=== PATIENT | female | born 1950 | race Caucasian/White ===

== ENCOUNTER → 2023-12-28 | Outpatient (REF) | payer MEDICARE, SELFPAY | LOC: DHSLP | PROVIDERS: ATTENDING PHYSICIAN Internal Medicine Critical Care Medicine; FAMILY PHYSICIAN Internal Medicine | DX: G47.33 Obstructive sleep apnea (adult) (pediatric) (principal); R06.83 Snoring | CPT/HCPCS: 95800 ==

== ENCOUNTER 2024-10-22 01:09 | Inpatient (IN) | payer MEDICARE, SELFPAY ==
[2024-10-21 17:08] VITALS: BP 144/74
[2024-10-21 17:43] LABS: % Basophils 0.6 % (0-2); % Immature Granulocytes 0.6 % (0-0.5); % Lymphocytes 15.1 % (20.5-51.1); % Monocytes 5.8 % (1.7-9.3); % Neutrophils 73.9 % (42.2-75.2); Absolute Basophils 0.1 10^3/uL (0-0.2); Absolute Eosinophils 0.5 10^3/uL (0-0.7); Absolute Immature Granulocytes 0.1 10^3/uL (0-0.05); Absolute Lymphocytes 1.9 10^3/uL (1.2-3.4); Absolute Monocytes 0.7 10^3/uL (0.1-0.6); Absolute Neutrophils 9.4 10^3/uL (1.4-6.5); Hematocrit 41.2 % (37.0-47.0); Hemoglobin 13.3 g/dL (12.0-16.0); Mean Corp Hgb Conc. 32.3 g/dL (33.0-37.0); Mean Corpuscular Hgb 26.5 pg (27.0-31.0); Mean Corpuscular Volume 82.2 fL (81.0-99.0); Mean Platelet Volume 8.6 fL (7.4-10.4); Nucleated Red Blood Cells % 0 %; Platelet Count 363 10^3/uL (130-400); Red Blood Cell Count 5.01 10^6/uL (4.20-5.40); Red Cell Dist. Width 14.8 % (11.5-14.5); White Blood Cell Count 12.7 10^3/uL (4.8-10.8)
[2024-10-21 17:46] LABS: ALT (SGPT) 11 U/L (0-35); AST (SGOT) 14 U/L (14-36); Albumin 4.2 g/dl (3.5-5.0); Alkaline Phosphatase 92 U/L (38-126); Blood Urea Nitrogen 21 mg/dl (7-17); Calcium 9.7 mg/dl (8.4-10.2); Carbon Dioxide 29 mmol/L (22-30); Chloride 98 mmol/L (98-107); Glucose 217 mg/dl (70-99); Potassium 3.6 mmol/L (3.5-5.1); Sodium 139 mmol/L (135-145); Total Bilirubin 0.5 mg/dl (0.2-1.3); Total Protein 6.5 g/dl (6.3-8.2); eGFR > 60.00
[2024-10-21 21:07] VITALS: BP 101/79
[2024-10-21 21:26] VITALS: BMI 28.2
--- NOTE | 2024-10-21 21:41 | ED.GENMED ---
History of Present Illness
General
Chief Complaint: Skin Problem
Source: patient and spouse
Exam Limitations: none
Time Seen by Provider: 10/21/24 21:01
History of Present Illness
History of Present Illness:
74-year-old female diabetic, immunodeficiency, prior hip and pelvic fracture 14 years ago after a fall treated [facility] subsequently had infection treated with antibiotics for extended period of time recovered well had a fall on
[employer] [place]'s Day to the right side of her hip same area, did not keep eating a eye on the spot, had some redness, today had some drainage no fevers, no nausea or vomiting, no pain with range of motion of her hip
Past History
Past History
ED Past Medical History: Asthma, HTN, Hypercholesterolemia, IDDM and Other (Common variable Immunodeficiency disorder, MRSA infection which has led to her taking Minocycline for years, causing bluish discoloration of her skin)
ED Past Surgical History: Cholecystectomy, Gynecological, Orthopedic and Tonsilectomy
Social History
Tobacco: Non-smoker
Alcohol: None
Drug: None
Personal:
Living: with family
Employment: Retired
Family History
Family History: Other
Phy Exam
Physical Exam
Physical Exam:
Physical Exam
General: Nontoxic elderly
Neck: No jaundice
Heart: s1/s2 regular rate and rhythm, no murmur. equal radial pulses.
Lungs: no acute respiratory distress. clear bilaterally
Abdomen: Nontender
Neuro: alert and oriented. No pain with range of motion of the hips bilateral
Skin: no rash
Psychiatric: well kept. interactive and cooperative
Extremities: Redness with puslike drainage and erythema under skin fold in the right lateral hip
Course
Orders/Labs/Results
Orders:
Orders
10/21/24 17:16
CR Hip - RT w/wo Pel 2-3 Vw* Urgent
Comment:
Reason For Exam: infection
Include a pelvis x-ray?: No
10/21/24 17:26
C-Reactive Protein Urgent
Comment: ADD ON
CMP [Comprehensive Metabolic Panel] Urgent
Complete Blood Count/With Diff Urgent
Erythrocyte Sed Rate Urgent
Comment: ADD ON
10/21/24 21:22
Add On- LAB Urgent
Tests Added?: crp/esr
10/21/24 21:23
CT Lower Ext W/iv Cont Rt Urgent
Comment:
Reason For Exam: infection right hip
10/21/24 21:39
Blood Culture Q30M
ROBERTO CARLOS Source: Blood/Venous
Specimen Description:
Wound Culture [Wound/Abscess/Other Culture] Urgent
ROBERTO CARLOS Source: Skin Surface
Specimen Description:
Date Specimen was Collected: 10/21/24
Time Specimen was Collected: 21:24
10/21/24 22:15
Blood Culture Q30M
ROBERTO CARLOS Source: Blood/Venous
Specimen Description:
Abnormal Lab Results
10/21/24
17:26
WBC 12.7 H 10^3/uL
(4.8-10.8)
MCH 26.5 L pg
(27.0-31.0)
MCHC 32.3 L g/dL
(33.0-37.0)
RDW 14.8 H %
(11.5-14.5)
Abs Immat Gran (auto) 0.1 H 10^3/uL
(0-0.05)
Absolute Neuts (auto) 9.4 H 10^3/uL
(1.4-6.5)
Absolute Monos (auto) 0.7 H 10^3/uL
(0.1-0.6)
Immature Gran % 0.6 H %
(0-0.5)
Lymphocytes % 15.1 L %
(20.5-51.1)
BUN 21 H mg/dl
(7-17)
Glucose 217 H mg/dl
(70-99)
C-Reactive Protein 18.50 H mg/L
(0.0-10.00)
10/21/24 17:26
10/21/24 17:26
Vital Signs
Initial and Last Documented VS:
Initial Vital Signs
Temp Pulse Resp BP Pulse Ox
98.0 F 93 18 144/74 100
10/21/24 17:08 10/21/24 17:08 10/21/24 17:08 10/21/24 17:08 10/21/24 17:08
Last Documented Vital Signs
Temp Pulse Resp BP Pulse Ox
98.0 F 86 16 127/79 99
10/21/24 17:08 10/21/24 22:00 10/21/24 22:00 10/21/24 22:00 10/21/24 22:00
MDM/Problems Addressed
Differential Diagnosis Includes:
Cellulitis, infected hardware, abscess,
MDM/Problems Addressed:
Drainage or redness from the right hip upper thigh
Chronic conditions affecting care: DM and Immunosuppressed
Acute Exacerbation and/or Progression of Chronic Illness: DM and Immunosuppressed
*Radiology
Radiology exam reviewed: preliminary read by ED provider and radiology read reviewed
*Pulse Oximetry
Patient hypoxic: no
*Critical Care Note
Total Time (30-74mins, 75-104mins- exclusive of procedures): Not Applicable
Update Note
Update Note:
Will add inflammatory markers, check wound culture, CT scan for any collection low threshold to admit
Update CT report noted
ED Attending Note
-
Portions of this chart may have been created with voice recognition software.� Occasional wrong word or��sound alike� substitutions may have occurred due to the inherent limitations of voice recognition software.
Discharge Plan
Departure
Patient Disposition: Admit
Date of Disposition: 10/21/24
Time of Disposition: 23:00
Admit to: Med/Surg
Presentation/result/management discussed w/ accepting MD/: Hospitalist
Patient with high blood pressure during this ER visit?: No
Condition: Fair
Discharge Problem:
Complicated cellulitis, Diabetes, Common variable immunodeficiency
Prescriptions:
No Action
venlafaxine [Effexor XR] 150 MG capsule,extended release 24hr
450 mg PO DAILY
aspirin 81 MG tablet,delayed release (DR/EC)
81 mg PO HS
lorazepam 0.5 MG tablet
0.5 mg PO DAILYPRN PRN (Reason: anxiety)
diphenhydramine HCl [Banophen] 25 MG capsule
25 mg PO HS
esomeprazole magnesium [Nexium] 40 MG capsule,delayed release(DR/EC)
40 mg PO DAILY
colestipol [Colestid] 1 GM tablet
2 g PO DAILY
insulin glargine U-300 conc [Toujeo SoloStar U-300 Insulin] 300 UNIT/ML insulin pen
4 unit SC DAILY
atorvastatin 20 mg Tablet
20 mg PO HS
valsartan 320 mg Tablet
320 mg PO DAILY
hydrochlorothiazide 12.5 mg Capsule
12.5 mg PO DAILY
colestipol 1 gram Tablet
1 g PO HS
mometasone 0.1 % Cream
1 applic TOPICAL DAILY
calcium carbonate-vitamin D3 600 mg-10 mcg (400 unit) Tablet
1 tab PO HS
cholecalciferol (vitamin D3) 1,250 mcg (50,000 unit) Capsule
1,250 mcg PO FR
dulaglutide 1.5 mg/0.5 mL Pen Injector
1.5 mg SC FR
Referrals:
Nevaeh Berkowitz DO [Family Provider] -
Interventions
Interventions:
*Risk Screen - Suicide Last Done: 10/21/24 17:08
*General Assessment Last Done: 10/21/24 17:08
*Neglect/Abuse Screening Last Done: 10/21/24 21:27
*ED COVID-19 Vaccine History Last Done: 10/21/24 17:08
ED-Skin Assessment Last Done: 10/21/24 21:50
Discharge Date and Time
Print Language: SWAZI
[2024-10-21 21:51] LABS: Erythrocyte Sed Rate 10 mm/hour (0-20)
[2024-10-21 22:00] VITALS: BP 127/79
[2024-10-22] VITALS: BP 116/74
--- NOTE | 2024-10-22 01:08 | HPS.HSE ---
Family Physician
-
Family Physician: Nevaeh Berkowitz
Chief Complaint
-
R hip drainage
History of Present Illness
Patient is a 74y F with PMH significant for HTN, DM-II, CVID and prior / chronic R hip infection who presents to ED complaining of drainage / discharge from the R anterior hip area. Patient states that she had a fall on 10/03 and landed on her R
hip. She was having increased pain since that time - controlled with OTC medications. This AM she woke and noted that the bed was 'soaked'. She noted drainage of clear / yellow fluid from the R anterior hip region. Patient identified an area of
redness with mucoid secretions and clear liquid drainage in skin folds of her lower abdomen / area of the R hip / groin.
Patient denies any fevers / chills, N/V, etc.
Patient notes that she suffered initial fall / injury with fracture of the R ilium in 2010. She had ORIF done at [facility].
Shortly thereafter she was diagnosed with MRSA wound infection. She underwent I&D, washout, implantation of antibiotic beads, wound vac placement, etc.
Patient was admitted multiple times in the next few months at [facility] / [facility] for issues relating to her infection.
She developed LUISITO / renal failure from vancomycin.
She was eventually started on minocycline by ID at [facility] and remained on this until about 2 years ago.
She was then followed by Dr. Castro at [facility]. Patient had developed chronic skin pigmentation changes from minocycline and this medication was stopped at that time.
She has not had any issues until the fall on 10/03.
Medical History
Past Medical History
Past Medical History: Reports Other
Additional Past Medical History:
Chronic R Hip MRSA Infection
Common Variable Immune Deficiency
Hypertension
DM-II
Right Foot Drop
Anxiety / Depression
Chronic Diarrhea
Past Surgical History: Reports Other
Additional Past Surgical History:
Right Ilium ORIF (2010)
Right Hip I&D / Washout (2010)
Lumbar Discectomy
T&A
Cholecystectomy
Social History
Tobacco: Non-smoker
Alcohol: Occasional
Drug: None
Family History
Family History: Not pertinent
Allergies / Home Medications
Allergies reflects when Allergies were last updated in [email or web address].
Home Medications with original date entered in [email or web address]
Allergy/Medication List:
Allergies
Allergy/AdvReac Type Severity Reaction Status Date / Time
vancomycin Allergy renal Verified 10/21/24 17:14
failure
Home Medications
aspirin 81 mg tablet,delayed release 81 mg PO HS 09/01/16
colestipol 1 gram tablet (Colestid) 2 g PO DAILY 09/01/16
diphenhydramine HCl 25 mg capsule (Banophen) 25 mg PO HS 09/01/16
esomeprazole magnesium 40 mg capsule,delayed release (Nexium) 40 mg PO DAILY 09/01/16
insulin glargine U-300 conc 300 unit/mL (1.5 mL) subcutaneous pen (Toujeo SoloStar U-300 Insulin) 4 unit SC DAILY 09/01/16
lorazepam 0.5 mg tablet 0.5 mg PO DAILYPRN PRN anxiety 09/01/16
venlafaxine 150 mg capsule,extended release 24 hr (Effexor XR) 450 mg PO DAILY 09/01/16
atorvastatin 20 mg tablet 20 mg PO HS 10/21/24
calcium 600 mg (as carbonate)-vitamin D3 10 mcg (400 unit) tablet 1 tab PO HS 10/21/24
cholecalciferol (vitamin D3) 1,250 mcg (50,000 unit) capsule 1,250 mcg PO FR 10/21/24
colestipol 1 gram tablet 1 g PO HS 10/21/24
dulaglutide 1.5 mg/0.5 mL subcutaneous pen injector 1.5 mg SC FR 10/21/24
hydrochlorothiazide 12.5 mg capsule 12.5 mg PO DAILY 10/21/24
mometasone 0.1 % topical cream 1 applic topical DAILY dry skin 10/21/24
valsartan 320 mg tablet 320 mg PO DAILY 10/21/24
Review of Systems
-
History Source: Patient
A 12 point ROS was completed and negative except as noted: Yes
Constitutional: Denies Fever or Chills
Respiratory: Denies Cough or Trouble Breathing
Cardiac: Denies Chest Pain or Palpitations
Abdomen/GI: Reports Diarrhea (chronic / controlled on colestipol); Denies Abdominal Pain, Nausea or Vomiting
: Denies Dysuria or Frequency
Musculoskeletal: Reports Joint Pain (R hip.)
Skin: Reports Other (Drainage from R abdominal / groin skin fold with associated redness / swelling.)
Neurological: Denies Dizzy or Headache
Physical Exam
Vital Signs
Vital Signs
Temp Pulse Resp BP Pulse Ox
98.0 F 84 14 116/74 99
10/21/24 17:08 10/22/24 00:00 10/22/24 00:00 10/22/24 00:00 10/22/24 00:00
Physical Exam
General: Other (74y F in no acute distress.)
HEENT: Moist mucous membranes and PERRLA
Respiratory: Clear; No Wheezes, Rales or Rhonchi
Cardiac: S1/S2 and Regular Rhythm; No Murmur
GI: Soft, Non Tender, Non Distended, Normal Bowel Sounds and Other (Excess skin / abdominal skin folds from significant weight loss / prior obesity.)
Musculoskeletal: No Clubbing, No Cyanosis and No Edema
Skin: Other (Linear area of erythema and induration in skin fold superior to the R inguinal area. Mucoid secretions and clear / serous drainage. Mild induration / tenderness.)
Neuro: AO x 3
Laboratory Results
-
10/21/24 17:26
10/21/24 17:26
Laboratory Results
Total Bilirubin 0.5 mg/dl (0.2-1.3) 10/21/24 17:26
AST 14 U/L (14-36) 10/21/24 17:26
ALT 11 U/L (0-35) 10/21/24 17:26
Alkaline Phosphatase 92 U/L (38-126) 10/21/24 17:26
Impression/Plan
-
A/P: Patient is a 74y F with PMH significant for CVID and prior R hip infection who presents to ED complaining of drainage from the R hip area s/p recent fall.
Right Hip / Groin Cellulitis / Drainage
CVID
- Admit for further evaluation and treatment.
- Location and history are suspicious for possible recurrent / persistent R hip infection (MRSA previously).
- CT done in the ED shows skin changes but no evident hardware abnormality, fluid collection, etc.
- Cultures obtained in the ED (blood and local drainage / discharge).
- Follow-up culture data and begin appropriate abx. Currently afebrile, non-toxic, etc.
- ID evaluation for additional recommendations.
- Wound Care eval for local care.
Benign Hypertension
- Stable. Continue home medication with holding parameters.
DM-II
- Stable. Continue basal : bolus insulin regimen.
- Cover with SSI as needed.
- Update A1C.
Anxiety / Depression
- Stable. Continue Effexor and lorazepam PRN.
DVT Prophylaxis: Subcut heparin
Code Status: Full
--- NOTE | 2024-10-22 03:07 | PTCARENOTE ---
Pt received as ED hold on stretcher. AAOx3, pleasant. Admission and assessment completed (refer to worklist). Pt overall skin w/blueish hue, states 2/2 chronic abx minocycline. Plan of care discussed. Assisted x1 to BR, oral hygiene completed.
R hip w/small open area over old healed incision, 4x4 tucked [address]. Pt reports falling on 's day, verbalizes understanding of calling for assist before ambulating. Call britton w/in reach. Safe environment maintained.
[2024-10-22 04:55] VITALS: BMI 27.0
[2024-10-22 05:58] LABS: Hematocrit 39.3 % (37.0-47.0); Hemoglobin 12.8 g/dL (12.0-16.0); Mean Corp Hgb Conc. 32.6 g/dL (33.0-37.0); Mean Corpuscular Hgb 26.4 pg (27.0-31.0); Mean Corpuscular Volume 81.2 fL (81.0-99.0); Mean Platelet Volume 8.7 fL (7.4-10.4); Platelet Count 288 10^3/uL (130-400); Red Blood Cell Count 4.84 10^6/uL (4.20-5.40); Red Cell Dist. Width 14.6 % (11.5-14.5); White Blood Cell Count 9.5 10^3/uL (4.8-10.8)
[2024-10-22 06:08] LABS: Blood Urea Nitrogen 18 mg/dl (7-17); Carbon Dioxide 29 mmol/L (22-30); Chloride 101 mmol/L (98-107); Estimated Creatinine Clearance 60 ml/min; Glucose 106 mg/dl (70-99); Potassium 3.9 mmol/L (3.5-5.1); Sodium 138 mmol/L (135-145); eGFR > 60.00
--- NOTE | 2024-10-22 07:48 | CON.ID ---
Consultation
-
Date/Time Consultation Requested: 10/22/2024 0120
Date/Time Consultation Performed: 10/22/2024 0707
Requesting Provider: Dr. Quiñones
Performing Provider: Dr. Spencer
Reason for Consultation: Suspected right hip infection
Chief Complaint / Past History
History of Present Illness
Francisca Larson is a 74-year-old female being evaluated at the request of Dr. Kapoor in regards to suspected right hip infection. History is obtained from chart review, along with patient interview.
The patient reports a remote history of a fall in 2010 at which time she fractured her right hip and pelvis. She reports that a contributing factor to that may have been prior use of steroids, reportedly for a history of chronic pneumonias.
Ultimately, she was admitted to the [facility] where she underwent ORIF, with plates and screws being placed. She reports a very extensive and protracted hospitalization from mid November 2010 through February 2011. Her hospitalization
was complicated by MRSA infection. She notes that she had been on vancomycin at some point in time and developed renal insufficiency. Ultimately she was transition to minocycline which she took for approximately 10 years but stopped 2 to 3 years
ago secondary to skin discoloration attributed to the minocycline.
She recalls that her hip had started hurting approximately 1 year ago, but she states that she had seen her orthopedic physician at that time and x-rays indicated only arthritis causing the discomfort. She notes the pain improved up to several
months ago when there again was some ongoing pain.
More recently, she reports sustaining a fall on ' of this year, at which time she reports falling onto her right hip. There were no other issues since, but yesterday she recalls waking up and her bed was 'soaked' from drainage
that seemed to be coming from a prior incisional line.
She denies any fevers or chills. She notes that the area where the drainage is occurring is tender to touch.
Past History
Additional Past Medical History:
Asthma
HTN
Dyslipidemia
DM
Common variable immunodeficiency
Hx chronic MRSA infection
Additional Past Surgical History:
Cholecystectomy
[employer] surgery
Right hip ORIF
Allergy History:
vancomycin Allergy (Verified 10/21/24 17:14)
renal failure
Medications Reviewed: Yes
Current Antibiotics:
None
Social History
Tobacco: Non-Smoker
Alcohol: None
Drug: None
Employment: Retired
Family History
Family History: Not Pertinent
Review of Systems
Vital Signs
Temp Pulse Resp BP Pulse Ox
98.0 F 84 14 116/74 99
10/21/24 17:08 10/22/24 00:00 10/22/24 00:00 10/22/24 00:00 10/22/24 00:00
Physical Exam
Physical Exam
Constitutional: No Acute Distress, Comfortable, Chronically Ill and Non-toxic
Head: Normocephalic
Eyes: Pupils Equal, Pupils Round, No Conjunctival Hemorrhage and Sclera Anicteric
Oral: No Thrush and No Ulcers
Cardiovascular: S1/S2; Negative S3/S4
Pulmonary: Clear; Negative Wheezes, Rales or Rhonchi
Gastrointestinal: Soft and Non Tender
Extremities: Negative Edema, Cyanosis or Erythema
Musculoskeletal: Other (Right hip area with punctate wound with tenderness and some serous drainage.)
Skin: Warm and Dry; Negative Rash or Jaundice
Neurological: Awake and Alert
Psychological: Calm
.
Lab / Diagnostic Study Results
10/22/24 05:16
10/22/24 05:14
Abs Immat Gran (auto) 0.1 10^3/uL (0-0.05) H 10/21/24 17:26
Absolute Neuts (auto) 9.4 10^3/uL (1.4-6.5) H 10/21/24 17:26
Absolute Lymphs (auto) 1.9 10^3/uL (1.2-3.4) 10/21/24 17:26
Absolute Monos (auto) 0.7 10^3/uL (0.1-0.6) H 10/21/24 17:26
Absolute Basos (auto) 0.1 10^3/uL (0-0.2) 10/21/24 17:26
Immature Gran % 0.6 % (0-0.5) H 10/21/24 17:
Neutrophils % 73.9 % (42.2-75.2) 10/21/24 17:
Lymphocytes % 15.1 % (20.5-51.1) L 10/21/24 17:
Monocytes % 5.8 % (1.7-9.3) 10/21/24 17:
Eosinophils % 4.0 % (0-6) 10/21/24 17:
Basophils % 0.6 % (0-2) 10/21/24 17:
ESR 10 mm/hour (0-20) 10/21/24 17:26
C-Reactive Protein 18.50 mg/L (0.0-10.00) H 10/21/24 17:
Microbiology Results
Micro:
10/22/24 05:16 MRSA Screen - Pending
Nose
10/21/24 22:15 Blood Culture - Pending
Blood/Venous
10/21/24 21:39 Wound Culture - Pending
Skin Surface Gram Stain - Pending
10/21/24 21:39 Blood Culture - Pending
Blood/Venous
Imaging:
10/21/24 CT right lower extremity: ORIF changes of the right iliac bone without overt hardware complications. There is overlying soft tissue thickening and edema/inflammation along the right upper hip lateral soft tissues, suggesting phlegmon. No
discrete fluid collections. Inflammatory tract extends to the overlying lateral skin surface with a few scattered foci of subcutaneous gas. Please see full dictation for additional detail. Film personally viewed.
10/21/2024 x-ray right hip: Moderate degenerative changes of the right hip without evidence for acute fracture or dislocation. ORIF changes of the right iliac bone without overt complication. Scattered vascular calcifications. Mild to moderate
degenerative changes of the pubis symphysis, left hip, bilateral sacroiliac joints and partially visualized lower lumbar spine.
Assessment / Plan
Right hip pain.
Right hip draining sinus
Suspected exacerbation of right hip chronic hardware infection
- Hx MRSA
Leukocytosis
Mildly elevated CRP
Hx common variable immunodeficiency
Asthma
HTN
Dyslipidemia
Diabetes mellitus
Recommendations:
Would hold on antibiotic administration for the present while cultures are pending.
Monitor white count and temperature curve.
Local care to the right hip area.
Await A1c
May consider Orthopedics evaluation. Ultimately, patient likely will require follow-up with her original Orthopedic surgeon.
[2024-10-22] MEDS: EFFEXOR XR 450 MG PO (07:50)
[2024-10-22] MEDS: DIOVAN 320 MG PO (07:50)
[2024-10-22] MEDS: HEPARIN SC ×2 (07:58→08:01)
[2024-10-22 08:15] VITALS: BP 144/104
[2024-10-22 08:40] LABS: Glucose - Point of Care 111 mg/dl (70-99)
[2024-10-22] MEDS: NOVOLOG FLEXPEN-LOW RESISTANCE SC ×2 (08:40→12:45)
[2024-10-22 09:00] LABS: Glycohemoglobin (HgbA1c) 7.3 % (4.0-5.6)
[2024-10-22 12:33] LABS: Glucose - Point of Care 145 mg/dl (70-99)
--- NOTE | 2024-10-22 13:26 | W.PN.HOSP.TC ---
Today's Communication/Plan
-
see plan
Assessment / Plan
Assessment / Plan
74y F with PMH significant for CVID and prior R hip infection who presents to ED complaining of drainage from the R hip area s/p recent fall.
Gen: NAD, AAOx3.
Eyes: EOMI, PERRLA, no scleral icterus.
Neck: supple.
CV: RRR, +S1/S2, no m/r/g.
Resp: CTAB, no rales, wheezes, or rhonchi.
Abd: +BS, soft, NT, ND
Skin: hyperpigmented skin
MSK: R hip exam deferred (ortho c/s pending)
Neuro: CN 2-12 intact, non-focal.
Psych: Normal mood and affect.
R hip and Pelvis Xray: Moderate degenerative changes of the right hip without evidence for acute fracture or dislocation. ORIF changes of the right iliac bone without overt complication. Scattered vascular calcifications. Mild to moderate
degenerative changes of the pubis symphysis, left hip, bilateral sacroiliac joints and partially visualized lower lumbar spine.
CT RLE: ORIF changes of the right iliac bone without overt hardware complications. There is overlying soft tissue thickening and edema/inflammation along the right upper hip lateral soft tissues, suggesting phlegmon. No discrete fluid collections.
Inflammatory tract extends to the overlying lateral skin surface with a few scattered foci of subcutaneous gas. Moderate degenerative changes of the right hip. No overt CT evidence for ostial myelitis. Diverticulosis coli. Evaluation of additional
soft tissue structures such as tendons and ligaments is limited by CT.
Right Hip/Groin Cellulitis with Drainage:
-Patient with underlying common variable immunodeficiency syndrome
-Location and history are suspicious for possible recurrent / persistent R hip infection (MRSA previously).
-CT RLE above
-follow BCxs/WCx
-Afebrile, no leukocytosis
-ID following and not recommending abx at this time. Discussed with Dr. Kimzey over [employer].
-c/s ortho
-wound care
Other problems:
Essential Hypertension: cont Diovan
DM2: a1c 7.3%, cont Lantus/SSI/accuchecks
Anxiety/Depression: Cont Effexor/lorazepam PRN
FULL/heparin
Anticipated Discharge: 24 - 48 hours
Subjective/Interval History
-
Date of Service: October 22, 2024
c/s diarrhea.
Objective Data
-
Labs:
Laboratory Results
10/22/24 10/22/24
05:14 05:16
WBC 9.5
Hgb 12.8
Hct 39.3
Plt Count 288 D
Sodium 138
Potassium 3.9
Chloride 101
Carbon Dioxide 29
BUN 18 H
Creatinine 0.7
Glucose 106 H
Calcium 10.0
Vital Signs:
Vital Signs
Temp Pulse Resp BP Pulse Ox
98.0 F 79 16 144/104 100
10/22/24 08:15 10/22/24 08:15 10/22/24 08:15 10/22/24 08:15 10/22/24 08:29
I&O
10/21/24 10/22/24 10/23/24
06:59 06:59 06:59
Intake Total 240 / 240
Balance 240 / 240
--- NOTE | 2024-10-22 15:53 | PTCARENOTE ---
room assigned upstairs. No Delay report sent
--- NOTE | 2024-10-22 16:08 | PTCARENOTE ---
pt refused cholestyramine susp. reports she can only tolerate capsules. contacted pharmacy, capsules are not in stock, spouse to bring in pt's own- pharm will verify.
[2024-10-22 17:11] LABS: Glucose - Point of Care 150 mg/dl (70-99)
[2024-10-22 17:12] VITALS: BP 162/93
[2024-10-22] MEDS: NOVOLOG FLEXPEN-LOW RESISTANCE 1 UNITS SC (18:27)
[2024-10-22] MEDS: NON-FORMULARY ITEM 1 GRAMS PO (21:02)
[2024-10-22] MEDS: HEPARIN 5000 UNITS SC (21:03)
[2024-10-22] MEDS: ASPIR LOW (ENTERIC COATED) 81 MG PO (21:03)
[2024-10-22] MEDS: OSCAL 500 + D 500 MG PO (21:03)
[2024-10-22] MEDS: LIPITOR 20 MG PO (21:03)
[2024-10-22 22:09] LABS: Glucose - Point of Care 170 mg/dl (70-99)
[2024-10-22 23:00] VITALS: BP 144/76
[2024-10-23 06:00] VITALS: BMI 28.0
--- NOTE | 2024-10-23 07:40 | W.PN.HOSP.TC ---
Today's Communication/Plan
-
d/c
Assessment / Plan
Assessment / Plan
74y F with PMH significant for CVID and prior R hip infection who presents to ED complaining of drainage from the R hip area s/p recent fall.
Gen: Remains NAD, AAOx3.
Eyes: EOMI, PERRLA, no scleral icterus.
Neck: supple.
CV: Remains RRR, +S1/S2, no m/r/g.
Resp: Remains CTAB, no rales, wheezes, or rhonchi.
Abd: +BS, soft, NT, ND
Skin: hyperpigmented skin
Neuro: CN 2-12 intact, non-focal.
Psych: Normal mood and affect.
10/21/24 21:39 Skin Surface Wound Culture - Preliminary
Staphylococcus aureus
10/21/24 21:39 Skin Surface Gram Stain - Preliminary
10/22/24 05:16 Nose MRSA Screen - Final
No Methicillin Resistant Staphylococcus aureus isolated.
10/21/24 22:15 Blood/Venous Blood Culture - Preliminary
No Growth in 24 hours- Final report to follow
10/21/24 21:39 Blood/Venous Blood Culture - Preliminary
No Growth in 24 hours- Final report to follow
R hip and Pelvis Xray: Moderate degenerative changes of the right hip without evidence for acute fracture or dislocation. ORIF changes of the right iliac bone without overt complication. Scattered vascular calcifications. Mild to moderate
degenerative changes of the pubis symphysis, left hip, bilateral sacroiliac joints and partially visualized lower lumbar spine.
CT RLE: ORIF changes of the right iliac bone without overt hardware complications. There is overlying soft tissue thickening and edema/inflammation along the right upper hip lateral soft tissues, suggesting phlegmon. No discrete fluid collections.
Inflammatory tract extends to the overlying lateral skin surface with a few scattered foci of subcutaneous gas. Moderate degenerative changes of the right hip. No overt CT evidence for ostial myelitis. Diverticulosis coli. Evaluation of additional
soft tissue structures such as tendons and ligaments is limited by CT.
Right Hip/Groin Cellulitis with Drainage:
-Patient with underlying common variable immunodeficiency syndrome
-Location and history are suspicious for possible recurrent / persistent R hip infection (MRSA previously).
-CT RLE above
-follow BCxs/WCx
-Afebrile, no leukocytosis
-ID following and continues to not recommend abx at this time (discussed with Dr. Spencer).
-appreciate ortho. No evidence of septic joint at this time.
-wound care
Other problems:
Essential Hypertension: cont Diovan
DM2: a1c 7.3%, cont Lantus/SSI/accuchecks
Anxiety/Depression: Cont Effexor/lorazepam PRN
FULL/heparin
Patient's daughter updated at bedside.
Total time spent on d/c = 34 min. This included today's physical exam, progress note, review of laboratory and diagnostic data, preparation of discharge documents and prescriptions, and discussions about the pt's hospital course and discharge plan
with the patient and other medical staff physician involved in the patient's care.
Anticipated Discharge: Today
Subjective/Interval History
-
Date of Service: October 23, 2024
No new complaints.
Objective Data
-
Vital Signs:
Vital Signs
Temp Pulse Resp BP Pulse Ox
98.7 F 87 16 144/76 99
10/22/24 23:00 10/22/24 23:00 10/22/24 23:00 10/22/24 23:00 10/22/24 23:00
I&O
10/22/24 10/23/24 10/24/24
06:59 06:59 06:59
Intake Total 240 / 240 720 / 720
Balance 240 / 240 720 / 720
[2024-10-23 07:44] LABS: Glucose - Point of Care 141 mg/dl (70-99)
[2024-10-23] MEDS: NOVOLOG FLEXPEN-LOW RESISTANCE SC (07:48)
[2024-10-23 07:50] VITALS: BP 149/81
[2024-10-23] MEDS: NON-FORMULARY ITEM 2 GRAMS PO (08:35)
[2024-10-23] MEDS: DIOVAN 320 MG PO (08:35)
[2024-10-23] MEDS: EFFEXOR XR 450 MG PO (08:35)
[2024-10-23] MEDS: HEPARIN 5000 UNITS SC (08:37)
[2024-10-23] MEDS: NON-FORMULARY ITEM 4 UNIT SC (08:37)
--- NOTE | 2024-10-23 08:51 | CON.ORTHO ---
Consultation
-
Date/Time Consultation Requested: 10/22/2024
Date/Time Consultation Performed: 10/23/2024
Requesting Provider: Sean Mariscal
Performing Provider: Adelso Gleason
Reason for Consultation: concern for right hip septic joint
Consultation - Orthopedics
History
Orthopedic Surgery Note
CC: R flank drainage
HPI: 74-year-old female with a history of CVID presents for 1 to 2 days of drainage from a prior surgical site about the anterior ileum. The patient reports a history of fracture of the ileum in 2010 which was treated surgically at a [facility] with
Sandro Palumbo. Her recovery was complicated by persistent wound drainage which was treated with multiple surgical I&D including antibiotic beads. She reports that eventually the wound closed and she was managed on chronic suppression with
minocycline. She discontinued the minocycline about 2 or 3 years ago due to skin pigmentation changes. She follows with infectious disease at [facility] who directed this. She saw Dr. Palumbo about a year ago for right hip pain where she was noted to
have right hip osteoarthritis without signs of hardware changes. She denies fevers or chills. She reports that the wound has been closed up until recently. She denies right groin pain or anterior thigh pain with hip motion such as putting on
socks and shoes or getting out of the car.
PMH/PSH: CVID, HTN, HL, DM
Medications: reviewed
Family History: Family history was reviewed. Noncontributory
Social history: Nonsmoker, no illicit drugs
Exam
General appearance: Pleasant. No acute distress.
Head: Normocephalic/atraumatic
Nose: No lesions or discharge.
Skin: No obvious rashes or open wounds
Lungs: No audible wheezing, no cough or sputum production
Musculoskeletal:
RLE:
- Surgical scar over anterior ilium overlying ASIS with 2mm opening at the lateral edge with purulent draiange
- No surrounding erthema
- No pain with active hip motion
- Weakness with dorsiflexion of foot - patient reports chronic from her fracture surgery
Imaging:
Xrays: Pelvis x-ray shows plate and screws transfixing the ileum without signs of acute hardware complication. Hardware appears extra-articular. There is signs of right hip osteoarthritis.
CT scan of the pelvis was reviewed by me showing screws transfixing the ilium. There is signs of right hip osteoarthritis. The radiology report describes an inflammatory track in the lateral skin surface with thickening and edema. No signs of a
large hip joint effusion.
Labs 10/21/2024:
ESR:10 (WNL)
CRP: 18.5 mg/L (H)
AP:
74-year-old female with a history of CVID with findings consistent with likely recurrence of chronic surgical site infection about the right ilium from prior fracture surgery. She is not having groin pain or thigh pain or other symptoms consistent
with right hip septic arthritis. If her symptoms change or there is concern by the medical teams for right hip septic arthritis, IR aspiration would more definitively assess for this. I discussed this with the patient. We discussed treatment options
such as resuming chronic suppressive antibiotics as well as general indications for surgical intervention. If she remains clinically stable, then she may follow up with Dr. Sandro Palumbo at [facility] to discuss further treatment
options.
Adelso Gleason MD
> 75 minutes was spent reviewing the clinical information, evaluating the patient, and formulating clinical plan.
Allergies / Home Medications
Allergy/AdvReac Type Severity Reaction Status Date / Time
vancomycin Allergy renal Verified 10/21/24 17:14
failure
�Medication �Instructions �Recorded
aspirin 81 mg tablet,delayed 81 mg PO HS 09/01/16
release
colestipol 1 gram tablet (Colestid) 2 g PO DAILY 09/01/16
diphenhydramine HCl 25 mg capsule 25 mg PO HS 09/01/16
(Banophen)
esomeprazole magnesium 40 mg 40 mg PO DAILY 09/01/16
capsule,delayed release (Nexium)
insulin glargine U-300 conc 300 4 unit SC DAILY 09/01/16
unit/mL (1.5 mL) subcutaneous pen
(Toujeo SoloStar U-300 Insulin)
lorazepam 0.5 mg tablet 0.5 mg PO DAILYPRN PRN anxiety 09/01/16
venlafaxine 150 mg 450 mg PO DAILY 09/01/16
capsule,extended release 24 hr
(Effexor XR)
atorvastatin 20 mg tablet 20 mg PO HS 10/21/24
calcium 600 mg (as 1 tab PO HS 10/21/24
carbonate)-vitamin D3 10 mcg (400
unit) tablet
cholecalciferol (vitamin D3) 1,250 1,250 mcg PO FR 10/21/24
mcg (50,000 unit) capsule
colestipol 1 gram tablet 1 g PO HS 10/21/24
dulaglutide 1.5 mg/0.5 mL 1.5 mg SC FR 10/21/24
subcutaneous pen injector
hydrochlorothiazide 12.5 mg capsule 12.5 mg PO DAILY 10/21/24
mometasone 0.1 % topical cream 1 applic topical DAILY dry skin 10/21/24
valsartan 320 mg tablet 320 mg PO DAILY 10/21/24
Vital Signs / Lab Results
Temp Pulse Resp BP Pulse Ox
97.9 F 84 15 149/81 99
10/23/24 07:50 10/23/24 07:50 10/23/24 07:50 10/23/24 07:50 10/23/24 07:50
10/22/24 05:16
10/22/24 05:14
[2024-10-23 11:33] LABS: Glucose - Point of Care 162 mg/dl (70-99)
[2024-10-23] MEDS: NOVOLOG FLEXPEN-LOW RESISTANCE 1 UNITS SC (12:28)
--- NOTE | 2024-10-23 12:34 | CM ---
Addendum entered by Stacey Tran 10/23/24 14:08:
Patient for discharge today, provided script for outpatient therapy. IMM verbally reviewed, agreeable to discharge, provided with copy, form placed in chart.
Original Note:
CM reviewed chart, patient seen bedside with daughter, initial assessment completed. Patient resides with her spouse, daughter, son in law, and grandchildren in a multiple story home, patient resides on first floor, one small step to enter. Patient
has a cane, walker, rollator, wheelchair, sit to stand lift at home. Patient reports she has a nurse come out once a month through her PCP, denies SNF. CM discussed therapy recommendations of outpatient therapy, patient agreeable, will need script
upon discharge. Patient confirms PCP Nevaeh Berkowitz, pharmacy [facility], confirms prescription coverage. CM will continue to follow for all discharge planning needs.
Plan; home with outpatient PT, will require script upon d/c
--- NOTE | 2024-10-23 13:16 | W.PN.ID1 ---
Date of Service
Date of Service: October 23, 2024
Today's Communication
Continue off antibiotics.
Assessment / Plan
Right hip pain.
Right hip draining sinus
Suspected exacerbation of right hip chronic hardware infection
- Hx MRSA
Leukocytosis
Mildly elevated CRP
Hx common variable immunodeficiency
Asthma
HTN
Dyslipidemia
Diabetes mellitus
Recommendations:
Wound cultures with Staph aureus. Susceptibilities pending, but suspect this may be recurrence of prior MRSA.
Would favor maintaining off of antibiotics for the present.
Patient advised that she needs follow-up with her primary Orthopedic physician following discharge for further workup.
Local care to the right hip area.
����������������������������������������������������������
Chief Complaint
-: Other (Right hip area drainage.)
Subjective / Review of Systems
Review of Systems: No Fever and No Chills
Vital Signs / Physical Exam
Vital Signs
Vital Signs
Temp Pulse Resp BP Pulse Ox
97.9 F 84 15 149/81 99
10/23/24 07:50 10/23/24 07:50 10/23/24 07:50 10/23/24 07:50 10/23/24 07:50
Physical Exam
Constitutional: No Acute Distress, Comfortable and Non-toxic
Eyes: Sclera Anicteric
Pulmonary: Non Labored
Wound: Other (Right punctate hip wound along prior suture line. Serous drainage.)
Neurological: Awake and Alert
Psychological: Calm
Objective Data
Lab Data
Lab Results
10/22/24 05:16
10/22/24 05:14
ESR 10 mm/hour (0-20) 10/21/24 17:26
Estimated Creat Clear 60 ml/min 10/22/24 05:14
Total Bilirubin 0.5 mg/dl (0.2-1.3) 10/21/24 17:26
AST 14 U/L (14-36) 10/21/24 17:26
ALT 11 U/L (0-35) 10/21/24 17:26
Alkaline Phosphatase 92 U/L (38-126) 10/21/24 17:26
C-Reactive Protein 18.50 mg/L (0.0-10.00) H 10/21/24 17:26
Most recent labs reviewed.
Micro Results:
10/21/24 21:39 Wound Culture - Preliminary
Skin Surface Staphylococcus aureus
Gram Stain - Preliminary
10/22/24 05:16 MRSA Screen - Final
Nose No Methicillin Resistant Staphylococcus aureus isolated.
10/21/24 22:15 Blood Culture - Preliminary
Blood/Venous No Growth in 24 hours- Final report to follow
10/21/24 21:39 Blood Culture - Preliminary
Blood/Venous No Growth in 24 hours- Final report to follow
Imaging:
10/21/24 CT right lower extremity: ORIF changes of the right iliac bone without overt hardware complications. There is overlying soft tissue thickening and edema/inflammation along the right upper hip lateral soft tissues, suggesting phlegmon. No
discrete fluid collections. Inflammatory tract extends to the overlying lateral skin surface with a few scattered foci of subcutaneous gas. Please see full dictation for additional detail. Film personally viewed.
10/21/2024 x-ray right hip: Moderate degenerative changes of the right hip without evidence for acute fracture or dislocation. ORIF changes of the right iliac bone without overt complication. Scattered vascular calcifications. Mild to moderate
degenerative changes of the pubis symphysis, left hip, bilateral sacroiliac joints and partially visualized lower lumbar spine.
Care Review
Plan reviewed with: Physician (Hospitalist)
--- NOTE | 2024-10-23 13:30 | W.DCSUMMARY ---
Discharge Summary
Discharge Data
Date of Admission: 10/22/24
Date of Discharge: 10/23/24
-
Pending Results: No
Hospital Course
Primary diagnoses:
Chronic right hip hardware infection
Secondary diagnoses:
Common variable immunodeficiency syndrome
Essential Hypertension
Type 2 diabetes mellitus
Anxiety
Depression
Consultants:
Orthopedics
Infectious disease
Imaging:
R hip and Pelvis Xray: Moderate degenerative changes of the right hip without evidence for acute fracture or dislocation. ORIF changes of the right iliac bone without overt complication. Scattered vascular calcifications. Mild to moderate
degenerative changes of the pubis symphysis, left hip, bilateral sacroiliac joints and partially visualized lower lumbar spine.
CT RLE: ORIF changes of the right iliac bone without overt hardware complications. There is overlying soft tissue thickening and edema/inflammation along the right upper hip lateral soft tissues, suggesting phlegmon. No discrete fluid collections.
Inflammatory tract extends to the overlying lateral skin surface with a few scattered foci of subcutaneous gas. Moderate degenerative changes of the right hip. No overt CT evidence for ostial myelitis. Diverticulosis coli. Evaluation of additional
soft tissue structures such as tendons and ligaments is limited by CT.
Hospital course 74-year-old female who presented with a chief complaints of right hip drainage as outlined in the H&P done on admission. Patient has underlying common variable immunodeficiency syndrome. She has history of open reduction and
internal fixation of the right hip. There was concern for recurrent/persistent right hip infection. She previously had a right hip infection with MRSA. She had been on minocycline for many years for suppressive therapy. She stopped this due to
skin hyperpigmentation. She was afebrile did not have a leukocytosis. Imaging above. She was seen in consultation by infectious disease and orthopedics. Dr. Gleason did not feel she had concerning signs or symptoms for septic joint. Patient has
had a blood cultures that were no growth. Wound culture preliminarily was growing Staphylococcus aureus. This was discussed with Dr. Spencer. The patient was not on antibiotics while hospitalized and he did not recommend antibiotics on discharge.
She will need to follow-up with her orthopedic surgeon at [facility].
Discharge Plan
-
Patient Disposition: Home (Routine Discharge)
Discharge Diagnosis/Procedures: Chronic right hip hardware infection
Condition: Good
Diet: Diabetic, Carb Controlled
Activity: As tolerated
Driving Restrictions: Not until seen by your Dr
Activity Restrictions/Additional Instructions:
You need to follow-up with the orthopedic surgeon within 1 week.
Referrals:
Nevaeh Berkowitz, DO [Family Provider] - in less than 1 week
Prescriptions:
Continued
venlafaxine [Effexor XR] 150 MG capsule,extended release 24hr
450 mg PO DAILY
aspirin 81 MG tablet,delayed release (DR/EC)
81 mg PO HS
lorazepam 0.5 MG tablet
0.5 mg PO DAILYPRN PRN (Reason: anxiety)
diphenhydramine HCl [Banophen] 25 MG capsule
25 mg PO HS
esomeprazole magnesium [Nexium] 40 MG capsule,delayed release(DR/EC)
40 mg PO DAILY
colestipol [Colestid] 1 GM tablet
2 g PO DAILY
insulin glargine U-300 conc [Toujeo SoloStar U-300 Insulin] 300 UNIT/ML insulin pen
4 unit SC DAILY
atorvastatin 20 mg Tablet
20 mg PO HS
valsartan 320 mg Tablet
320 mg PO DAILY
hydrochlorothiazide 12.5 mg Capsule
12.5 mg PO DAILY
colestipol 1 gram Tablet
1 g PO HS
mometasone 0.1 % Cream
1 applic TOPICAL DAILY
calcium carbonate-vitamin D3 600 mg-10 mcg (400 unit) Tablet
1 tab PO HS
cholecalciferol (vitamin D3) 1,250 mcg (50,000 unit) Capsule
1,250 mcg PO FR
dulaglutide 1.5 mg/0.5 mL Pen Injector
1.5 mg SC FR
Discharge Orders:
Discharge Patient (As Directed); Ordered 10/23/24
Ordered By: Sean Mariscal
Discharge Date and Time
Print Language: ALBANIAN
[2024-10-23 14:38] VITALS: BP 143/83
[2024-10-24 19:06] LABS: Hepatitis C Antibody Negative (Negative)
== END 2024-10-23 15:00 | disposition home or self-care (01) | DRG 603 ==
LOC: 4 WEST ACU 01:09
PROVIDERS: Emergency Medicine; ADMITTING PHYSICIAN Hospitalist; ATTENDING PHYSICIAN Internal Medicine; CONSULT PHYSICIAN Internal Medicine Infectious Disease; CONSULT PHYSICIAN Orthopaedic Surgery; EMERGENCY PHYSICIAN Emergency Medicine; FAMILY PHYSICIAN Internal Medicine
DX: L03.314 Cellulitis of groin (principal); D83.9 Common variable immunodeficiency, unspecified; B95.61 Methicillin susceptible Staphylococcus aureus infection as the cause of diseases classified elsewhere; I10 Essential (primary) hypertension; E11.9 Type 2 diabetes mellitus without complications; F32.A Depression, unspecified; F41.9 Anxiety disorder, unspecified; Z79.4 Long term (current) use of insulin
CPT/HCPCS: 73502; 73701; 80048; 80053; 82962; 83036; 85025; 85027; 85652; 86140; 86803; 87040; 87070; 87147; 87186; 87205; 99285; Q9967